=== PATIENT | female | born 1985 | race Caucasian/White ===

== ENCOUNTER 2018-09-26 05:26 | Day surgery (SDC) | payer OTHER ==
[~2018-09-26] VITALS: Ht 177.8 cm; Wt 95.1 kg
--- NOTE | ~2018-09-26 | O ---
[facility] [place] [address] OPERATIVE REPORT Name: PAMELA MILLAN Room #: [facility] M.Candice.#: [id number] Admission: 09/26/18 ������������������ Attend Phys: Peter Diaz DPM Discharge: 09/26/18 ������������������ Date of : 81 Report #: [id number] THIS REPORT FOR: //name// CC: Kei Diaz DATE OF SERVICE: 09/26/2018 SURGEON: Peter Diaz DPM. SUPPLIER MANAGER: Michelet Early DPM. PREOPERATIVE DIAGNOSES: 1. Right hallux valgus deformity. 2. Hammertoe deformity, right second digit. ANESTHESIA: General LMA. INJECTABLES: 30 mL of a 1:1 mixture of 0.5% Marcaine plain and 1% lidocaine plain. ESTIMATED BLOOD LOSS: Minimal. HEMOSTASIS: Right thigh tourniquet at 350 mmHg. SUTURES: 3-0 Vicryl, 4-0 Vicryl, 4-0 nylon. HARDWARE: Lapiplasty straight plates x 2 with associated screws. COMPLICATIONS: None. DESCRIPTION OF PROCEDURE: The patient was brought to the OR and placed on the table supine with induction of general LMA anesthesia. A well-padded right thigh tourniquet was placed. A local anesthetic block was given to the right foot proximal to the surgical site with the above mixture, namely 30 mL of 1:1 mixture of 0.5% Marcaine plain and 1% lidocaine plain. The extremity was prepped and draped aseptically. After exsanguination, the thigh tourniquet was inflated. A dorsal incision was created over the right first metatarsal cuneiform joint. Layered anatomic dissection utilized with preservation of the medial and dorsal cutaneous nerve. The first metatarsal cuneiform joint was identified and the capsule and periosteal tissues were sharply dissected off the joint. The joint was then mobilized with a sagittal saw blade in a vertical fashion and the appropriate instrumentation was utilized for the Lapiplasty technique to facilitate intermetatarsal angle reduction using live fluoroscopy for proper alignment. Once reduction and alignment were satisfactorily achieved, the cut guide system was used to take out the appropriate amount of [facility] [address] [place] [address] OPERATIVE REPORT Name: PAMELA MILLAN Room #: [facility] [place] [place] M.R.#: [id number] Admission: 09/26/18 ������������������ Attend Phys: Peter Diaz DPM Discharge: 09/26/18 ������������������ Date of : 81 Report #: [id number] bone, which was then fixed with 2 straight plates with locking screws. The joint surfaces were fenestrated with a K-wire prior to hardware placement. Fluoroscopy was utilized and there was excellent reduction of the hallux valgus deformity with tibial and fibular derotation and placement in an anatomic position. The hallux was in a rectus position, there was no sagittal plane elevation of the first metatarsal segment. Her bone was hard and all the hardware achieved rigid osteosynthesis. The wound was flushed and closed. Electrocautery was utilized for intraoperative hemostasis. The wound was closed in layers with 3-0 and 4-0 Vicryl with a running intradermal stitch of 4-0 Vicryl and the skin with 4-0 nylon. At this time, a dorsal capsulotomy was performed at the right second toe, which released the hammertoe deformity. The dorsal, medial and lateral aspect of the joint were transected with release of the plantar plate apparatus and a lateral capsulotomy of the right first MTP was also performed with release of the abductor hallucis tendon and a vertical capsulotomy over the lateral joint was released of the fibular sesamoidal suspensory ligament. This help to reduce the great toe into a slightly more rectus position. Sutures were applied to the second toe capsulotomy site and the tourniquet was deflated with normal vascular return. Sterile compressive bandage was applied with the toe held in rectus and a [id number] fiberglass splint was applied. The patient left the OR with no pain or complications noted. ��������������������������������������������� ���������������������������������������� By: ��������������������������������������������� [id number] Peter Diaz DPM /maegan
[~2018-09-26 05:26] MED LIST: ADDERALL 20 MG20 MG PO; CYMBALTA60 MG PO; DIAZEPAM 10 MG10 M1 PO; DYNACIN100 MG PO; IBUPROFEN 800800 M1 PO; NEURONTIN 400400 M1; PROAIR HFA8.5 GM INH; QUETIAPINE FUM100 MG PO; TOPAMAX200 MG PO; VALACYCLOVIR1000 MG PO; VENTOLIN HFA 1818 GM INH
[2018-09-26 11:51] VITALS: BP 94/67
[2018-09-26 16:26] VITALS: BP 94/67
== END 2018-09-26 16:55 | disposition home or self-care (01) ==
LOC: OR 05:26 → TBA 05:26 → OR 10:05
DX: M20.11 Hallux valgus (acquired), right foot (principal); M20.41 Other hammer toe(s) (acquired), right foot; K21.9 Gastro-esophageal reflux disease without esophagitis; J45.909 Unspecified asthma, uncomplicated; F32.9 Major depressive disorder, single episode, unspecified; F41.9 Anxiety disorder, unspecified; Z88.8 Allergy status to other drugs, medicaments and biological substances; Z88.2 Allergy status to sulfonamides; Z98.890 Other specified postprocedural states; Z79.899 Other long term (current) drug therapy
CPT/HCPCS: 50010; 50101; 50386; 52120; 55430; 56526; 57091; 57180; 62110; 62900; 70005